=== PATIENT | female | born 1980 ===

== ENCOUNTER 2018-10-22 14:39 | Inpatient (IN) | payer OTHER ==
[~2018-10-22] VITALS: Ht 175.3 cm; Wt 82.6 kg
[2018-10-25] MEDS ORDERED: COLACE100 MG PO (13:05)
[2018-10-25] MEDS ORDERED: ULTRACET PO (13:05)
== END 2018-10-25 13:27 | DRG 743 ==
LOC: OB/GYN 10-24 07:43 → O/R 10-24 07:43 → SURH 10-24 11:00 → OB/GYN 10-24 12:24 → SURH 10-24 13:15 → OB/GYN 10-24 15:35 → ADM 10-29 11:00 → EDSTATUS 10-29 11:00
PROVIDERS: ADMIT Obstetrics & Gynecology
PROC: 0USG7ZZ Reposition Vagina, Via Natural or Artificial Opening (ICD-10-PCS; 2018-10-24)
PROC: 0UT97ZZ Resection of Uterus, Via Natural or Artificial Opening (ICD-10-PCS; principal; 2018-10-24 13:15)
DX: D25.2 Subserosal leiomyoma of uterus (principal); N72 Inflammatory disease of cervix uteri